=== PATIENT | male | born 1965 | race Caucasian/White ===

== ENCOUNTER 2019-10-11 09:56 | Day surgery (SDC) | payer BC ==
[2019-10-05 17:47] VITALS: BMI 32.1
--- NOTE | 2019-10-11 08:20 | P.GSHP ---
History of Present Illness H&P Date: 10/11/19 CHIEF COMPLAINT: GERD and colon screen HISTORY OF PRESENT ILLNESS: The patient is a 54-year-old male who presents with gastroesophageal reflux disease and need for colon screen. Upper and lower endoscopy were offered for further evaluation and management. PAST MEDICAL HISTORY: Please see list. PAST SURGICAL HISTORY: Please see list. MEDICATIONS: Please see list. ALLERGIES: Please see list. SOCIAL HISTORY: No illicit drug use FAMILY HISTORY: No reports of Crohn disease or ulcerative colitis. REVIEW OF ORGAN SYSTEMS: CONSTITUTIONAL: No reports of fevers or chills. GI: Denies any blood in stools or constipation. PHYSICAL EXAM: VITAL SIGNS: Stable GENERAL: Well-developed pleasant in no acute distress. HEENT: No scleral icterus. Extraocular movements grossly intact. Moist buccal mucosa. NECK: Supple without lymphadenopathy. CHEST: Unlabored respirations. Equal bilateral excursions. CARDIOVASCULAR: Regular rate and rhythm. Distal 2+ pulses. ABDOMEN: Soft, nondistended. MUSCULOSKELETAL: No clubbing, cyanosis, or edema. ASSESSMENT: 1. Gastroesophageal reflux disease 2. Colon screen. PLAN: 1. Recommend proceeding with an upper and lower endoscopy Past Medical History Past Medical History: GERD/Reflux Additional Past Medical History / Comment(s): Hx c/o pain on lt side of chest with certain foods. History of Any Multi-Drug Resistant Organisms: None Reported Additional Past Surgical History / Comment(s): EGD Past Anesthesia/Blood Transfusion Reactions: No Reported Reaction Smoking Status: Never smoker - Past Family History Mother Family Medical History: No Reported History Medications and Allergies Home Medications Medication Instructions Recorded Confirmed Type Acetaminophen [Tylenol Extra 500 - 1,000 mg PO Q8H PRN 10/05/19 10/05/19 History Strength] Calcium Carbonate [Tums] 500 mg PO QID PRN 10/05/19 10/05/19 History Allergies Allergy/AdvReac Type Severity Reaction Status Date / Time No Known Allergies Allergy Verified 10/05/19 17:32
[~2019-10-11 09:56] MED LIST: LACTATED RINGERS 1,000 ML IV SCH
[2019-10-11 10:22] VITALS: TEMP 97.8
[2019-10-11] MEDS ORDERED: LACTATED RINGERS 1,000 ML IV ONE (10:23)
[2019-10-11] MEDS ORDERED: LIDOCAINE 1% 20 ML VIAL (10MG/ML) FOR IV START INTRADERMA ONE (10:23)
[2019-10-11] MEDS ORDERED: PROPOFOL 10 MG/ML 20 ML VIAL IV ONE (11:21)
--- NOTE | 2019-10-11 11:48 | P.PCN ---
Date of Procedure: 10/11/19 Description of Procedure: PREOPERATIVE DIAGNOSIS: Gastroesophageal reflux disease. POSTOPERATIVE DIAGNOSIS: Gastroesophageal reflux disease. Diaphragmatic hiatal hernia Acute gastric ulcer, antrum OPERATION: Esophagogastroduodenoscopy with biopsies along antrum. SURGEON: Татьяна Salas MD ANESTHESIA: MAC. INDICATIONS: The patient is a 54-year-old male who presents with a history of reflux disease. Benefits and risks of the procedure were described. Informed consent was obtained. DESCRIPTION: The patient was brought into the endoscopy suite and laid in the left lateral decubitus position. An Olympus gastroscope was passed along the posterior oropharynx down to the distal esophagus where the squamocolumnar junction was encountered at 43 cm from the incisors. The stomach was entered and no bile reflux was found. Additional findings are listed below. Biopsies with cold forceps were obtained of the antrum. The first through third portion of the duodenum was examined and unremarkable. Retroflexion of the scope confirmed Hill grade 2 lower esophageal valve. The squamocolumnar junction demonstrated LA grade B erosive esophagitis. The stomach was desufflated. The patient tolerated the procedure well. FINDINGS: Squamocolumnar junction 43 cm from the incisors. Diaphragmatic hiatus at 45 cm. Hiatal hernia, 2 cm Hill grade 2 lower esophageal valve. LA grade B erosive esophagitis. No active duodenitis. Acute ulceration 2 at antrum with biopsy obtained RECOMMENDATIONS: Upper endoscopy as needed.
--- NOTE | 2019-10-11 11:56 | P.PCN ---
Date of Procedure: 10/11/19 Description of Procedure: PREOPERATIVE DIAGNOSIS: Colonoscopy screening, first POSTOPERATIVE DIAGNOSIS: Colonoscopy screening, first Sigmoid colon polyp External hemorrhoids, grade 2 Sigmoid diverticulosis OPERATION: Colonoscopy to the ileocecal valve and appendiceal orifice. Colonoscopy with cold forceps biopsy SURGEON: Татьяна Salas MD. ANESTHESIA: MAC. INDICATIONS: The patient is an 54-year-old male who presents for his first colonoscopy screening. Benefits and risks were described and informed consent was obtained. DESCRIPTION OF PROCEDURE: The patient had undergone Suprep. He had been brought into the operating room and laid in the left lateral decubitus position. The prostatic fossa was unremarkable. After adequate intravenous sedation, the rectum was examined with 2% lidocaine jelly. External hemorrhoids were encountered with fresh blood. The rectal tone was within normal limits. No lesions were palpated in the rectal vault. An Olympus colonoscope was advanced until the ileocecal valve and appendiceal orifice were clearly viewed. The prep was good. Sigmoid diverticu losis was encountered. A sigmoid colon polyp was removed with cold forceps biopsy. No evidence of focal colitis was found. Retroflexion of the scope demonstrated grade 2 internal hemorrhoids without active bleeding or inflammation. The colon was desufflated. The patient had tolerated the procedure well. Withdrawal time was over 6 minutes. FINDINGS: Aronchick preparation quality scale 2 (1-5) Internal hemorrhoids, grade 2 External hemorrhoids, grade 2. No arteriovenous malformations. Sigmoid diverticulosis Removal of 1 polyp: - Cold forceps biopsy at 18 cm from the anal verge, 4 mm polyp, sigmoid colon No focal colitis. RECOMMENDATIONS: Repeat colonoscopy 5 years, 2023 Plan - Discharge Summary Discharge Rx Participant: No New Discharge Prescriptions: New Sucralfate [Carafate] 1 gm PO BID #30 tab Omeprazole 40 mg PO DAILY #90 capsule. No Action Calcium Carbonate [Tums] 500 mg PO QID PRN PRN Reason: gerd Acetaminophen [Tylenol Extra Strength] 500 - 1,000 mg PO Q8H PRN PRN Reason: Pain Discharge Medication List Acetaminophen [Tylenol Extra Strength] 500 - 1,000 mg PO Q8H PRN 10/05/19 [History] Calcium Carbonate [Tums] 500 mg PO QID PRN 10/05/19 [History] Omeprazole 40 mg PO DAILY #90 capsule. 12/18/19 [Rx] Sucralfate [Carafate] 1 gm PO BID #30 tab 10/11/19 [Rx] Follow up Appointment(s)/Referral(s): Татьяна Salas MD [STAFF PHYSICIAN] - 11/07/19 Patient Instructions/Handouts: Peptic Ulcer (DC), Gastritis (DC), Diverticulosis (GEN), Diverticulosis Diet (GEN), Colorectal Polyps (GEN) Activity/Diet/Wound Care/Special Instructions: Repeat colonoscopy, 5 years, 2013 Discharge Disposition: HOME SELF-CARE
[2019-10-11 11:57] VITALS: RESP 16
--- NOTE | 2019-10-11 12:03 | P.PN ---
Progress Note - Text Progress Note Date: 10/11/19 Patient reported having left chest pain and arm pain on the way to the hospital. Will get EKG and troponin
[2019-10-11 12:18] VITALS: BP 139/86; PULSE 83
== END 2019-10-11 14:22 | disposition home or self-care (01) ==
LOC: ORWHC2ENDO 09:56
PROVIDERS: ATTEND Surgery Plastic and Reconstructive Surgery
DX: K21.9 Gastro-esophageal reflux disease without esophagitis (principal); Z12.11 Encounter for screening for malignant neoplasm of colon; D12.5 Benign neoplasm of sigmoid colon; K25.3 Acute gastric ulcer without hemorrhage or perforation; K29.50 Unspecified chronic gastritis without bleeding; K44.9 Diaphragmatic hernia without obstruction or gangrene; K57.30 Diverticulosis of large intestine without perforation or abscess without bleeding; K64.4 Residual hemorrhoidal skin tags
CPT/HCPCS: 93005; 88305; 84484; 45380; 43239; J2704

== ENCOUNTER → 2019-10-26 | Outpatient (CLI) | payer BC ==
--- NOTE | 2019-10-26 09:13 | FL ---
EXAMINATION TYPE: FL barium swallow DATE OF EXAM: 10/26/2019 CLINICAL HISTORY: Long-standing gastroesophageal reflux. Recent endoscopy with known gastric ulcers. TECHNIQUE: A double contrast esophagram is performed utilizing air and barium. A total of 1.24 aleisha rudolph of fluoroscopic time was utilized during procedure. 39 fluoroscopic images were saved during the examination. COMPARISON: None FINDINGS: The esophagus shows normal motility and emptying into the stomach. No evidence of hiatal h ernia or stricture noted. Moderate degree gastroesophageal reflux was seen during real time performan ce of this study in the supine position only. IMPRESSION: Moderate degree gastroesophageal reflux in the supine position. Otherwise unremarkable ex am.
== END | disposition home or self-care (01) ==
LOC: RADUSWWP 07:47
PROVIDERS: ATTEND Surgery Plastic and Reconstructive Surgery
DX: K21.9 Gastro-esophageal reflux disease without esophagitis (principal)
CPT/HCPCS: 74220